=== PATIENT | female | born 1930 | race Caucasian/White ===

== ENCOUNTER 2017-01-24 10:37 | Inpatient (IN) | payer OTHER ==
[~2017-01-24] VITALS: Ht 165.1 cm; Wt 99.8 kg
[~2017-01-24 10:37] MED LIST: ALBU8.5H3 INH; ALLO100T30 PO; AMIO200T42 PO; AZIT250T89 PO; AZIT500T77 PO; CEFD300C37 PO; CIPR250T2 PO; CIPR500T87 PO; DILT120C11 PO; FURO-93 PO; HYDROCORT PO; HYDROCORTISONE PO; LATA2.5D3 EACHEYE; LEVO125T5 PO; LEVO75TA PO; METO25TA35 PO; METR500T PO; MONT10TA9 PO; OMEP40CA6 PO; POTA10TA31 PO; POTASSIUM PO; SPIR50TA2 PO; WARF10TA6 PO-COUM; WARF1TAB PO; WARF2.5T73 PO; WARF2TAB PO; WARF3TAB PO; WARF3TAB7 PO; [UNRECOGNIZED DRUG - CODE]; [UNRECOGNIZED DRUG - REMARK] PO
[2017-01-24] MEDS ORDERED: ONDANSETRON 2MG/ML, 2ML IVPush ONE (11:30)
[2017-01-24 11:51] LABS: BLOOD UREA NITROGEN 33 mg/dL (7-18)
[2017-01-24] MEDS ORDERED: HYDROmorphone 1 MG/ML, 1ML ONE ×2 (11:52→14:31)
[2017-01-24] MEDS ORDERED: ONDANSETRON 2MG/ML, 2ML ONE (11:52)
[2017-01-24] MEDS ORDERED: HYDR5TAB2 PO (12:13)
[2017-01-24] MEDS ORDERED: POTA10CA PO (12:13)
[2017-01-24] MEDS ORDERED: FURO20TA3 PO (12:13)
[2017-01-24] MEDS ORDERED: SPIR50TA2 PO (12:13)
[2017-01-24] MEDS ORDERED: AMIO200T7 PO (12:13)
[2017-01-24] MEDS ORDERED: MECLIZINE CHEWABLE 25 MG TAB ONE (12:53)
[2017-01-24] MEDS ORDERED: MECLIZINE CHEWABLE 25 MG TAB PO ONE (13:00)
[2017-01-24] MEDS ORDERED: PROMETHAZINE 25 MG/ML, 1ML IM ONE (14:30)
[2017-01-24] MEDS ORDERED: PROMETHAZINE 25 MG/ML, 1ML ONE (14:31)
[2017-01-24] MEDS: HYDROmorphone 1 MG/ML, 1ML IVPush PRN ×2 (14:36→15:16)
[2017-01-24] MEDS ORDERED: SODIUM CHLORIDE FLUSH 10ML SYR IVF ONE (15:00)
[2017-01-24] MEDS ORDERED: SODIUM CHLORIDE 0.9% 1,000ML IVBOLUS ONE (15:00)
[2017-01-24 15:05] LABS: IS PT STATUS REG ER OR PRE ER? YES
[2017-01-24] MEDS ORDERED: POLYETHYLENE GLYCOL 17 GM PACKET PO PRN (15:30)
[2017-01-24] MEDS ORDERED: morphine SULFATE 10 MG/ML, 1ML IVPush PRN (15:30)
[2017-01-24] MEDS ORDERED: DOCUSATE 100 MG CAPSULE PO PRN (15:30)
[2017-01-24] MEDS ORDERED: NS + 20MEQ KCL 1,000 ML IV SCH (15:30)
[2017-01-24] MEDS ORDERED: ACETAMINOPHEN 325 MG TABLET PO PRN (15:30)
[2017-01-24] MEDS ORDERED: ONDANSETRON 2MG/ML, 2ML IVPush PRN (15:30)
[2017-01-24 16:22] VITALS: BP 116/44
[2017-01-24] MEDS ORDERED: ALBUTEROL SULFATE 2.5 MG/3 ML NPPB PRN (16:30)
[2017-01-24] MEDS: WARFARIN 3 MG TABLET PO-COUM SCH (18:09)
[2017-01-24 18:33] VITALS: BP 125/73
[2017-01-24] MEDS: LATANOPROST OPHTH 0.005%, 2.5ML EACHEYE SCH (22:13)
[2017-01-25 00:03] LABS: IS PT STATUS REG ER OR PRE ER? NO
[2017-01-25 01:32] VITALS: BP 129/64
[2017-01-25] MEDS: LEVOTHYROXINE 50 MCG TABLET PO SCH (05:08)
[2017-01-25 06:08] LABS: BLOOD UREA NITROGEN 30 mg/dL (7-18)
[2017-01-25 06:10] LABS: IS PT STATUS REG ER OR PRE ER? NO
[2017-01-25 06:25] LABS: PATH.CAST-FLAG NOT PRESENT; SPERM-FLAG NOT PRESENT; SRC-FLAG NOT PRESENT; XTAL-FLAG NOT PRESENT; YLC-FLAG NOT PRESENT
[2017-01-25 08:00] VITALS: BP 102/59
[2017-01-25] MEDS: SENNA/DOCUSATE TABLET PO SCH (09:00)
[2017-01-25] MEDS ORDERED: CEFTRIAXONE 1,000 MG in SODIUM CHLORIDE 0.9% 50 ML IV SCH (09:30)
[2017-01-25] MEDS: HYDROCORTISONE 5 MG TABLET PO SCH (09:48)
[2017-01-25] MEDS: MONTELUKAST 10 MG TABLET PO SCH (09:48)
[2017-01-25] MEDS: POTASSIUM CHLORIDE 10 MEQ TABLET.ER PO SCH (09:49)
[2017-01-25] MEDS: SPIRONOLACTONE 50 MG TABLET PO SCH (09:49)
[2017-01-25] MEDS: AMIODARONE 200 MG TABLET PO SCH (09:49)
[2017-01-25] MEDS: CEFTRIAXONE 1,000 MG in SODIUM CHLORIDE 0.9% 100 ML IV SCH (11:08)
[2017-01-25 13:41] VITALS: BP 129/70
[2017-01-25] MEDS: WARFARIN 3 MG TABLET PO-COUM SCH (18:33)
[2017-01-25 19:29] VITALS: BP 119/68
[2017-01-25] MEDS: LATANOPROST OPHTH 0.005%, 2.5ML EACHEYE SCH (20:59)
[2017-01-25] MEDS: HYDROcodone/APAP 5/325 TABLET PO PRN (20:59)
[2017-01-26 03:38] VITALS: BP 114/68
[2017-01-26] MEDS: LEVOTHYROXINE 50 MCG TABLET PO SCH (05:00)
[2017-01-26] MEDS: HYDROcodone/APAP 5/325 TABLET PO PRN ×4 (05:00→20:22)
[2017-01-26 06:08] LABS: BLOOD UREA NITROGEN 22 mg/dL (7-18)
[2017-01-26 07:23] VITALS: BP 111/62
[2017-01-26] MEDS: SPIRONOLACTONE 50 MG TABLET PO SCH (08:05)
[2017-01-26] MEDS: MONTELUKAST 10 MG TABLET PO SCH (08:05)
[2017-01-26] MEDS: SENNA/DOCUSATE TABLET PO SCH (08:05)
[2017-01-26] MEDS: POTASSIUM CHLORIDE 10 MEQ TABLET.ER PO SCH (08:05)
[2017-01-26] MEDS: HYDROCORTISONE 5 MG TABLET PO SCH (08:05)
[2017-01-26] MEDS: AMIODARONE 200 MG TABLET PO SCH (08:05)
[2017-01-26] MEDS: CEFTRIAXONE 1,000 MG in SODIUM CHLORIDE 0.9% 100 ML IV SCH (10:25)
[2017-01-26 14:24] VITALS: BP 113/61
[2017-01-26] MEDS: WARFARIN 3 MG TABLET PO-COUM SCH (18:10)
[2017-01-26] MEDS: LATANOPROST OPHTH 0.005%, 2.5ML EACHEYE SCH (20:23)
[2017-01-26 21:40] VITALS: BP 108/57
[2017-01-27 02:00] VITALS: BP 114/62
[2017-01-27 05:37] LABS: BLOOD UREA NITROGEN 17 mg/dL (7-18)
[2017-01-27] MEDS: LEVOTHYROXINE 50 MCG TABLET PO SCH (05:42)
[2017-01-27 08:00] VITALS: BP 108/53
[2017-01-27] MEDS: HYDROCORTISONE 5 MG TABLET PO SCH (09:15)
[2017-01-27] MEDS: SENNA/DOCUSATE TABLET PO SCH (09:15)
[2017-01-27] MEDS: MONTELUKAST 10 MG TABLET PO SCH (09:15)
[2017-01-27] MEDS: SPIRONOLACTONE 50 MG TABLET PO SCH (09:16)
[2017-01-27] MEDS: AMIODARONE 200 MG TABLET PO SCH (09:16)
[2017-01-27] MEDS: POTASSIUM CHLORIDE 10 MEQ TABLET.ER PO SCH (09:16)
[2017-01-27] MEDS: HYDROcodone/APAP 5/325 TABLET PO PRN ×2 (10:04→23:38)
[2017-01-27] MEDS ORDERED: CEFTRIAXONE PMX 1GM/50ML 50 ML IV SCH (11:00)
[2017-01-27 14:00] VITALS: BP 120/64
[2017-01-27 19:41] VITALS: BP 114/62
[2017-01-27] MEDS: LATANOPROST OPHTH 0.005%, 2.5ML EACHEYE SCH (20:47)
[2017-01-27] MEDS: SULFAMETH./TRIMETHOPRIM DS 800MG/160MG TABLET PO SCH (20:47)
[2017-01-28 01:43] VITALS: BP 105/60
[2017-01-28 06:19] LABS: BLOOD UREA NITROGEN 15 mg/dL (7-18)
[2017-01-28] MEDS: LEVOTHYROXINE 50 MCG TABLET PO SCH (06:23)
[2017-01-28 07:31] VITALS: BP 101/57
[2017-01-28] MEDS: SENNA/DOCUSATE TABLET PO SCH (09:08)
[2017-01-28] MEDS: SULFAMETH./TRIMETHOPRIM DS 800MG/160MG TABLET PO SCH ×2 (09:09→20:51)
[2017-01-28] MEDS: POTASSIUM CHLORIDE 10 MEQ TABLET.ER PO SCH (09:09)
[2017-01-28] MEDS: AMIODARONE 200 MG TABLET PO SCH (09:09)
[2017-01-28] MEDS: HYDROCORTISONE 5 MG TABLET PO SCH (09:09)
[2017-01-28] MEDS: MONTELUKAST 10 MG TABLET PO SCH (09:09)
[2017-01-28] MEDS ORDERED: PHYTONADIONE 10 MG/ML, 1ML SQ ONE (09:30)
[2017-01-28] MEDS: NYSTATIN 500,000 UNITS/5 ML UDC PO SCH ×3 (10:39→20:51)
[2017-01-28 13:16] VITALS: BP 103/61
[2017-01-28] MEDS: HYDROcodone/APAP 5/325 TABLET PO PRN ×2 (16:02→18:49)
[2017-01-28 19:40] VITALS: BP 120/61
[2017-01-28] MEDS: LATANOPROST OPHTH 0.005%, 2.5ML EACHEYE SCH (20:51)
[2017-01-29 02:55] VITALS: BP 112/60
[2017-01-29] MEDS: NYSTATIN 500,000 UNITS/5 ML UDC PO SCH ×4 (06:04→21:18)
[2017-01-29] MEDS: LEVOTHYROXINE 50 MCG TABLET PO SCH (06:04)
[2017-01-29 06:20] VITALS: BP 114/58
[2017-01-29 06:49] LABS: BLOOD UREA NITROGEN 12 mg/dL (7-18)
[2017-01-29] MEDS ORDERED: PHYTONADIONE 10 MG/ML, 1ML IM ONE (07:30)
[2017-01-29] MEDS: HYDROCORTISONE 5 MG TABLET PO SCH (08:39)
[2017-01-29] MEDS: AMIODARONE 200 MG TABLET PO SCH (08:39)
[2017-01-29] MEDS: POTASSIUM CHLORIDE 10 MEQ TABLET.ER PO SCH (08:39)
[2017-01-29] MEDS: SENNA/DOCUSATE TABLET PO SCH (08:39)
[2017-01-29] MEDS: SULFAMETH./TRIMETHOPRIM DS 800MG/160MG TABLET PO SCH ×2 (08:39→21:17)
[2017-01-29] MEDS: MONTELUKAST 10 MG TABLET PO SCH (08:39)
[2017-01-29] MEDS ORDERED: SODIUM CHLORIDE 0.9% 1,000 ML IV SCH (09:30)
[2017-01-29] MEDS ORDERED: FLUCONAZOLE 200 MG/100 ML 100 ML IV SCH (10:00)
[2017-01-29] MEDS ORDERED: FLUCONAZOLE 200 MG/100 ML 100 ML IV ONE (12:00)
[2017-01-29 12:05] VITALS: BP 118/59
[2017-01-29] MEDS: HYDROcodone/APAP 5/325 TABLET PO PRN (14:44)
[2017-01-29] MEDS ORDERED: POLYETHYLENE GLYCOL 17 GM PACKET PO PRN (15:30)
[2017-01-29] MEDS ORDERED: ONDANSETRON 2MG/ML, 2ML IVPush PRN (17:40)
[2017-01-29] MEDS ORDERED: ONDANSETRON ODT 4 MG PO PRN (17:40)
[2017-01-29 19:44] VITALS: BP 119/71
[2017-01-29] MEDS: LATANOPROST OPHTH 0.005%, 2.5ML EACHEYE SCH (21:18)
[2017-01-30] MEDS: SODIUM CHLORIDE 0.9% 1,000 ML IV SCH ×2 (00:06→23:00)
[2017-01-30 01:10] VITALS: BP 124/54
[2017-01-30] MEDS: NYSTATIN 500,000 UNITS/5 ML UDC PO SCH ×5 (06:00→20:05)
[2017-01-30] MEDS: LEVOTHYROXINE 50 MCG TABLET PO SCH (06:13)
[2017-01-30 06:48] LABS: BLOOD UREA NITROGEN 10 mg/dL (7-18)
[2017-01-30] MEDS: POTASSIUM CHLORIDE 10 MEQ TABLET.ER PO SCH (08:00)
[2017-01-30] MEDS: SENNA/DOCUSATE TABLET PO SCH (08:00)
[2017-01-30] MEDS: AMIODARONE 200 MG TABLET PO SCH (08:00)
[2017-01-30] MEDS: HYDROCORTISONE 5 MG TABLET PO SCH (08:00)
[2017-01-30] MEDS: MONTELUKAST 10 MG TABLET PO SCH (08:00)
[2017-01-30] MEDS: SULFAMETH./TRIMETHOPRIM DS 800MG/160MG TABLET PO SCH ×2 (08:00→20:05)
[2017-01-30] MEDS ORDERED: FLUCONAZOLE 100 MG TABLET PO SCH (09:30)
[2017-01-30] MEDS: HYDROcodone/APAP 5/325 TABLET PO PRN (10:55)
[2017-01-31] MEDS: NYSTATIN 500,000 UNITS/5 ML UDC PO SCH ×6 (06:05→18:25)
[2017-01-31] MEDS: LEVOTHYROXINE 50 MCG TABLET PO SCH (06:05)
[2017-01-31 07:50] VITALS: BP 108/60
[2017-01-31] MEDS: SULFAMETH./TRIMETHOPRIM DS 800MG/160MG TABLET PO SCH (09:00)
[2017-01-31] MEDS: MONTELUKAST 10 MG TABLET PO SCH (09:30)
[2017-01-31] MEDS: SENNA/DOCUSATE TABLET PO SCH (09:30)
[2017-01-31] MEDS: AMIODARONE 200 MG TABLET PO SCH (09:30)
[2017-01-31] MEDS: POTASSIUM CHLORIDE 10 MEQ TABLET.ER PO SCH (09:30)
[2017-01-31] MEDS: HYDROCORTISONE 5 MG TABLET PO SCH (09:30)
[2017-01-31] MEDS: HYDROcodone/APAP 5/325 TABLET PO PRN (12:00)
[2017-01-31 12:55] VITALS: BP 111/58
[2017-01-31] MEDS ORDERED: DOCU100C8 PO (16:01)
[2017-01-31] MEDS ORDERED: ACET325T26 PO (16:01)
[2017-01-31] MEDS ORDERED: HYDR-3138 PO (16:04)
[2017-01-31] MEDS ORDERED: SENN1TAB7 PO (16:06)
[2017-01-31] MEDS ORDERED: PROVENTIL (16:10)
[2017-01-31] MEDS ORDERED: SULF1TAB3 PO (16:13)
[2017-01-31] MEDS ORDERED: NYST1000 PO (16:14)
[2017-01-31] MEDS ORDERED: FLUC100T4 PO (16:17)
[2017-01-31] MEDS ORDERED: POLY17PO5 PO (16:23)
[2017-01-31] MEDS ORDERED: ONDA4TAB13 SL (16:24)
[2017-01-31 18:10] LABS: DIFF TOTAL CELLS COUNTED 100 CELL DIFF
[2017-01-31 18:21] LABS: ANISOCYTOSIS 1+; HYPOCHROMIA 1+; POLYCHROMASIA 2+; VERIFY COUNTS? YES
[2017-02-01 15:55] LABS: BLOOD UREA NITROGEN 9 mg/dL (7-18)
== END 2017-01-31 18:30 | DRG 291 ==
LOC: ED 13:43 → EDIP 14:36 → 4WST 16:18 → EDIP 01-31 18:09
PROVIDERS: ATTEND Family Medicine
DX: I13.0 Hypertensive heart and chronic kidney disease with heart failure and stage 1 through stage 4 chronic kidney disease, or unspecified chronic kidney disease (principal); N17.0 Acute kidney failure with tubular necrosis; N39.0 Urinary tract infection, site not specified; D68.69 Other thrombophilia; E87.1 Hypo-osmolality and hyponatremia; B37.0 Candidal stomatitis; B37.89 Other sites of candidiasis; I50.32 Chronic diastolic (congestive) heart failure; D49.7 Neoplasm of unspecified behavior of endocrine glands and other parts of nervous system; B96.4 Proteus (mirabilis) (morganii) as the cause of diseases classified elsewhere; E03.9 Hypothyroidism, unspecified; E86.0 Dehydration; G89.11 Acute pain due to trauma; I25.10 Atherosclerotic heart disease of native coronary artery without angina pectoris; I48.0 Paroxysmal atrial fibrillation; M10.9 Gout, unspecified; N18.2 Chronic kidney disease, stage 2 (mild); W01.0XXA Fall on same level from slipping, tripping and stumbling without subsequent striking against object, initial encounter; S09.90XA Unspecified injury of head, initial encounter; S50.319A Abrasion of unspecified elbow, initial encounter; Z79.01 Long term (current) use of anticoagulants; Z82.49 Family history of ischemic heart disease and other diseases of the circulatory system; Z86.711 Personal history of pulmonary embolism; Y93.89 Activity, other specified; Y92.098 Other place in other non-institutional residence as the place of occurrence of the external cause; Y99.8 Other external cause status; Z90.49 Acquired absence of other specified parts of digestive tract
CPT/HCPCS: 36415; 70450; 74020; 80048; 81001; 82040; 84484; 85025; 85610; 87077; 87086; 87147; 87186; 93005; 96372; 96374; 96376; J0696; J1170; J2405; J2550; J3430; J3480; J1450; J7030

== ENCOUNTER 2017-02-21 16:42 | Inpatient (IN) | payer OTHER ==
[~2017-02-21] VITALS: Ht 165.1 cm; Wt 102.0 kg
[~2017-02-21 16:42] MED LIST changes: +ACET325T26 PO; +AMIO200T7 PO; +DOCU100C8 PO; +FLUC100T4 PO; +FURO20TA3 PO; +HYDR-3138 PO; +HYDR5TAB2 PO; +NYST1000 PO; +ONDA4TAB13 SL; +POLY17PO5 PO; +POTA10CA PO; +PROVENTIL; +SENN1TAB7 PO; +SULF1TAB3 PO
[2017-02-21] MEDS ORDERED: SODIUM CHLORIDE FLUSH 10ML SYR IVF ONE (18:00)
[2017-02-21] MEDS ORDERED: ASPIRIN 325 MG TABLET PO ONE (18:00)
[2017-02-21] MEDS ORDERED: ASPIRIN 325 MG TABLET ONE (18:00)
[2017-02-21 18:03] LABS: ASPARTATE AMINO TRANSFERASE 79 U/L (15-37); BLOOD UREA NITROGEN 13 mg/dL (7-18)
[2017-02-21 18:08] LABS: IS PT STATUS REG ER OR PRE ER? YES
[2017-02-21] MEDS ORDERED: FURO20TA3 PO (20:32)
[2017-02-21] MEDS ORDERED: OMEP40CA6 PO (20:33)
[2017-02-21] MEDS ORDERED: SPIR50TA2 PO (20:34)
[2017-02-21] MEDS ORDERED: SODIUM CHLORIDE 0.9% 1,000 ML IV SCH (20:51)
[2017-02-21] MEDS ORDERED: ONDANSETRON ODT 4 MG PO PRN (21:00)
[2017-02-21] MEDS ORDERED: TEMAZEPAM 15 MG CAPSULE PO PRN (21:00)
[2017-02-21] MEDS ORDERED: DOCUSATE 100 MG CAPSULE PO PRN (21:00)
[2017-02-21] MEDS ORDERED: LABETALOL 5MG/ML, 20ML IVPush PRN (21:00)
[2017-02-21 23:07] VITALS: BP 99/49
[2017-02-22] VITALS (7 sets, daily range): BP systolic 98–133; BP diastolic 61–82
[2017-02-22 00:39] LABS: IS PT STATUS REG ER OR PRE ER? NO
[2017-02-22 05:35] LABS: BLOOD UREA NITROGEN 14 mg/dL (7-18)
[2017-02-22 05:42] LABS: IS PT STATUS REG ER OR PRE ER? NO
[2017-02-22] MEDS: LEVOTHYROXINE 50 MCG TABLET PO SCH (05:42)
[2017-02-22] MEDS ORDERED: HYDROCORTISONE 5 MG TABLET PO SCH (09:00)
[2017-02-22] MEDS: FUROSEMIDE 20 MG TABLET PO SCH (09:00)
[2017-02-22] MEDS: TEMPLATE NON-FORMULARY MED. (Albuterol Sulfate (Proair Hfa) 1 PUFF) INH SCH (09:00)
[2017-02-22] MEDS ORDERED: AMIODARONE 200 MG TABLET PO SCH (09:00)
[2017-02-22] MEDS: SPIRONOLACTONE 50 MG TABLET PO SCH (09:00)
[2017-02-22] MEDS: OMEPRAZOLE 20 MG CAPSULE.DR PO SCH (09:16)
[2017-02-22] MEDS: POTASSIUM CHLORIDE 10 MEQ TABLET.ER PO SCH (09:16)
[2017-02-22] MEDS: MONTELUKAST 10 MG TABLET PO SCH (09:17)
[2017-02-22] MEDS: SODIUM CHLORIDE 0.9% 1,000 ML IV SCH ×2 (09:20→22:10)
[2017-02-22] MEDS: CEFTRIAXONE PMX 1GM/50ML 50 ML IV SCH (13:01)
[2017-02-22] MEDS ORDERED: HYDROcodone/APAP 5/325 TABLET ONE (14:05)
[2017-02-22] MEDS: HYDROcodone/APAP 5/325 TABLET PO PRN ×2 (14:07→21:11)
[2017-02-22] MEDS ORDERED: WARFARIN 3 MG TABLET PO-COUM SCH (18:00)
[2017-02-22] MEDS ORDERED: WARFARIN 3 MG TABLET PO-COUM ONE (18:00)
[2017-02-22] MEDS: HYDROCORTISONE 20 MG TABLET PO SCH (21:11)
[2017-02-23 01:58] VITALS: BP 129/69
[2017-02-23] MEDS: LEVOTHYROXINE 50 MCG TABLET PO SCH (04:47)
[2017-02-23 06:01] LABS: ASPARTATE AMINO TRANSFERASE 105 U/L (15-37); BLOOD UREA NITROGEN 17 mg/dL (7-18)
[2017-02-23 08:01] VITALS: BP 119/71
[2017-02-23] MEDS: HYDROCORTISONE 20 MG TABLET PO SCH (08:22)
[2017-02-23] MEDS: SPIRONOLACTONE 50 MG TABLET PO SCH (08:22)
[2017-02-23] MEDS: TEMPLATE NON-FORMULARY MED. (Albuterol Sulfate (Proair Hfa) 1 PUFF) INH SCH (08:22)
[2017-02-23] MEDS: MONTELUKAST 10 MG TABLET PO SCH (08:22)
[2017-02-23] MEDS: OMEPRAZOLE 20 MG CAPSULE.DR PO SCH (08:22)
[2017-02-23] MEDS: FUROSEMIDE 20 MG TABLET PO SCH (08:22)
[2017-02-23] MEDS: POTASSIUM CHLORIDE 10 MEQ TABLET.ER PO SCH (08:22)
[2017-02-23] MEDS ORDERED: AMIODARONE 200 MG TABLET PO ONE (08:30)
[2017-02-23] MEDS: AMIODARONE 200 MG TABLET PO SCH (09:00)
[2017-02-23] MEDS: SODIUM CHLORIDE 0.9% 1,000 ML IV SCH (11:31)
[2017-02-23] MEDS: CEFTRIAXONE PMX 1GM/50ML 50 ML IV SCH (11:31)
[2017-02-23 13:51] VITALS: BP 127/73
[2017-02-23] MEDS ORDERED: FUROSEMIDE 40 MG/4 ML IV ONE (14:30)
[2017-02-23] MEDS ORDERED: HYDROCORTISONE 10 MG TABLET PO SCH (14:30)
[2017-02-23] MEDS ORDERED: HYDROCORTISONE 5 MG TABLET PO SCH ×2 (14:30→21:00)
[2017-02-23] MEDS ORDERED: POTASSIUM CHLORIDE 20 MEQ TAB.ER.PRT PO ONE (14:30)
[2017-02-23] MEDS: HYDROcodone/APAP 5/325 TABLET PO PRN (17:29)
[2017-02-23] MEDS ORDERED: WARFARIN 3 MG TABLET PO-COUM SCH (18:00)
[2017-02-23 18:50] VITALS: BP 94/59
[2017-02-24 00:54] VITALS: BP 94/58
[2017-02-24] MEDS: SODIUM CHLORIDE 0.9% 1,000 ML IV SCH ×2 (01:09→09:30)
[2017-02-24 06:00] LABS: ASPARTATE AMINO TRANSFERASE 47 U/L (15-37); BLOOD UREA NITROGEN 18 mg/dL (7-18)
[2017-02-24] MEDS ORDERED: LEVOTHYROXINE 25 MCG TABLET PO SCH (06:00)
[2017-02-24] MEDS: LEVOTHYROXINE 50 MCG TABLET PO SCH (06:23)
[2017-02-24 06:55] VITALS: BP 129/78
[2017-02-24 08:00] VITALS: BP_SYST 111; BP_SYST 115; BP_SYST 128; BP_DIAS 68; BP_DIAS 76; BP_DIAS 78
[2017-02-24] MEDS: TEMPLATE NON-FORMULARY MED. (Albuterol Sulfate (Proair Hfa) 1 PUFF) INH SCH (08:38)
[2017-02-24] MEDS: MONTELUKAST 10 MG TABLET PO SCH (08:38)
[2017-02-24] MEDS: OMEPRAZOLE 20 MG CAPSULE.DR PO SCH (08:38)
[2017-02-24] MEDS: SPIRONOLACTONE 50 MG TABLET PO SCH (08:39)
[2017-02-24] MEDS: FUROSEMIDE 20 MG TABLET PO SCH (08:39)
[2017-02-24] MEDS: POTASSIUM CHLORIDE 10 MEQ TABLET.ER PO SCH (08:39)
[2017-02-24] MEDS: AMIODARONE 200 MG TABLET PO SCH (08:39)
[2017-02-24] MEDS: CEFTRIAXONE PMX 1GM/50ML 50 ML IV SCH (11:41)
[2017-02-24 13:53] VITALS: BP 134/77
[2017-02-24] MEDS ORDERED: SODIUM BICARBONATE 650 MG TABLET PO PRN ×3 (16:30→16:31)
[2017-02-24] MEDS ORDERED: WARFARIN 2.5 MG TABLET PO-COUM SCH (18:00)
[2017-02-24 18:44] VITALS: BP 92/61
[2017-02-24] MEDS: HYDROcodone/APAP 5/325 TABLET PO PRN (19:38)
[2017-02-24] MEDS: morphine SULFATE 10 MG/ML, 1ML IVPush PRN (23:57)
[2017-02-25 02:30] VITALS: BP 112/79
[2017-02-25] MEDS: LEVOTHYROXINE 50 MCG TABLET PO SCH (05:43)
[2017-02-25] MEDS: morphine SULFATE 10 MG/ML, 1ML IVPush PRN ×5 (05:43→18:45)
[2017-02-25 06:36] VITALS: BP 109/82
[2017-02-25 06:42] LABS: BLOOD UREA NITROGEN 13 mg/dL (7-18)
[2017-02-25 08:25] LABS: ASPARTATE AMINO TRANSFERASE 207 U/L (15-37)
[2017-02-25] MEDS: TEMPLATE NON-FORMULARY MED. (Albuterol Sulfate (Proair Hfa) 1 PUFF) INH SCH (09:00)
[2017-02-25] MEDS: AMIODARONE 200 MG TABLET PO SCH (11:33)
[2017-02-25] MEDS: SPIRONOLACTONE 50 MG TABLET PO SCH (11:35)
[2017-02-25] MEDS: MONTELUKAST 10 MG TABLET PO SCH (11:35)
[2017-02-25] MEDS: FUROSEMIDE 20 MG TABLET PO SCH (11:35)
[2017-02-25] MEDS: POTASSIUM CHLORIDE 10 MEQ TABLET.ER PO SCH (11:37)
[2017-02-25] MEDS: OMEPRAZOLE 20 MG CAPSULE.DR PO SCH (11:37)
[2017-02-25] MEDS: CEFTRIAXONE PMX 1GM/50ML 50 ML IV SCH (11:37)
[2017-02-25 13:50] VITALS: BP 116/79
[2017-02-25 15:40] VITALS: BP 110/68
[2017-02-25] MEDS ORDERED: CEFTRIAXONE 2 GM in SODIUM CHLORIDE 0.9% 50 ML IV SCH (16:00)
[2017-02-25] MEDS: METRONIDAZOLE PMX 500MG/100ML 100 ML IV SCH ×2 (16:33→23:36)
[2017-02-25] MEDS ORDERED: FILTER 0.22 MICRON IV ONE (17:00)
[2017-02-25] MEDS ORDERED: AMIODARONE 300 MG in DEXTROSE 5% 100 ML IV ONE (17:00)
[2017-02-25] MEDS ORDERED: ADENOSINE 6 MG/2 ML ONE ×2 (17:05)
[2017-02-25] MEDS ORDERED: DIGOXIN 0.25 MG/ML, 2ML IVPush ONE ×2 (17:30→23:30)
[2017-02-25] MEDS ORDERED: AMIODARONE 900 MG in DEXTROSE 5% 482 ML IV PRN (17:30)
[2017-02-25] MEDS ORDERED: ADENOSINE 6 MG/2 ML IVPush ONE ×2 (17:30)
[2017-02-25] MEDS ORDERED: DIGOXIN 0.25 MG/ML, 2ML ONE (17:34)
[2017-02-25 17:47] LABS: BLOOD UREA NITROGEN 11 mg/dL (7-18)
[2017-02-25] MEDS ORDERED: FUROSEMIDE 40 MG/4 ML IV ONE (18:00)
[2017-02-25] MEDS ORDERED: WARFARIN 2.5 MG TABLET PO-COUM SCH (18:00)
[2017-02-25] MEDS ORDERED: MAGNESIUM SULFATE PMX 4GM/100M 100 ML IV ONE (18:00)
[2017-02-25] MEDS ORDERED: ALBUTEROL SULFATE 2.5 MG/3 ML NPPB PRN (18:08)
[2017-02-25] MEDS: FILTER 0.22 MICRON IV SCH (18:27)
[2017-02-25 20:00] VITALS: BP 101/72
[2017-02-25 23:32] VITALS: BP 102/67
[2017-02-26 02:08] VITALS: BP 106/64
[2017-02-26 05:06] LABS: ASPARTATE AMINO TRANSFERASE 295 U/L (15-37); BLOOD UREA NITROGEN 13 mg/dL (7-18)
[2017-02-26] MEDS ORDERED: DIGOXIN 0.25 MG/ML, 2ML IVPush ONE (05:30)
[2017-02-26] MEDS ORDERED: POTASSIUM PHOSPHATE 44 MEQ in SODIUM CHLORIDE 0.9% 500 ML IV ONE (07:30)
[2017-02-26] MEDS: LEVOTHYROXINE 50 MCG TABLET PO SCH (08:00)
[2017-02-26 08:21] VITALS: BP 105/71
[2017-02-26] MEDS: OMEPRAZOLE 20 MG CAPSULE.DR PO SCH (09:00)
[2017-02-26] MEDS: FUROSEMIDE 20 MG TABLET PO SCH (09:00)
[2017-02-26] MEDS: SPIRONOLACTONE 50 MG TABLET PO SCH (09:00)
[2017-02-26] MEDS: MONTELUKAST 10 MG TABLET PO SCH (09:00)
[2017-02-26] MEDS: POTASSIUM CHLORIDE 10 MEQ TABLET.ER PO SCH (09:00)
[2017-02-26] MEDS: morphine SULFATE 10 MG/ML, 1ML IVPush PRN ×3 (09:49→21:35)
[2017-02-26] MEDS: ONDANSETRON 2MG/ML, 2ML IVPush PRN ×2 (10:19→21:08)
[2017-02-26] MEDS: METRONIDAZOLE PMX 500MG/100ML 100 ML IV SCH ×2 (10:20→20:46)
[2017-02-26 13:22] VITALS: BP 109/74
[2017-02-26] MEDS: CEFTRIAXONE PMX 2GM/50ML 50 ML IVPB SCH (14:52)
[2017-02-26] MEDS: AMIODARONE 200 MG TABLET PO SCH ×2 (16:43→20:46)
[2017-02-26] MEDS ORDERED: WARFARIN 2 MG TABLET PO-COUM SCH (18:00)
[2017-02-26 20:43] VITALS: BP 119/73
[2017-02-27 02:00] VITALS: BP 119/78
[2017-02-27] MEDS: METRONIDAZOLE PMX 500MG/100ML 100 ML IV SCH ×3 (03:35→20:00)
[2017-02-27 05:46] LABS: ASPARTATE AMINO TRANSFERASE 188 U/L (15-37); BLOOD UREA NITROGEN 14 mg/dL (7-18)
[2017-02-27] MEDS: morphine SULFATE 10 MG/ML, 1ML IVPush PRN (05:56)
[2017-02-27 06:45] VITALS: BP 103/59
[2017-02-27] MEDS: MONTELUKAST 10 MG TABLET PO SCH (08:23)
[2017-02-27] MEDS: POTASSIUM CHLORIDE 10 MEQ TABLET.ER PO SCH (08:28)
[2017-02-27] MEDS: ONDANSETRON 2MG/ML, 2ML IVPush PRN (08:28)
[2017-02-27] MEDS: AMIODARONE 200 MG TABLET PO SCH ×2 (08:28→23:38)
[2017-02-27] MEDS: OMEPRAZOLE 20 MG CAPSULE.DR PO SCH (08:28)
[2017-02-27] MEDS: LEVOTHYROXINE 50 MCG TABLET PO SCH (08:28)
[2017-02-27] MEDS ORDERED: REGADENOSON 0.4 MG/5 ML SYRINGE ONE (11:20)
[2017-02-27] MEDS: CEFTRIAXONE PMX 2GM/50ML 50 ML IVPB SCH (12:25)
[2017-02-27 12:48] VITALS: BP 101/64
[2017-02-27] MEDS: PHYTONADIONE 10 MG/ML, 1ML SQ SCH (16:29)
[2017-02-27 20:30] VITALS: BP 98/50
[2017-02-27] MEDS ORDERED: ERTAPENEM 1 GM in SODIUM CHLORIDE 0.9% 50 ML IV SCH (21:30)
[2017-02-27] MEDS: MEROPENEM 500 MG in SODIUM CHLORIDE 0.9% 100 ML IV SCH (23:40)
[2017-02-28] MEDS: PHYTONADIONE 10 MG/ML, 1ML SQ SCH ×3 (00:01→16:00)
[2017-02-28 02:07] VITALS: BP 101/63
[2017-02-28 06:04] LABS: DIFF TOTAL CELLS COUNTED 100 CELL DIFF
[2017-02-28 06:06] LABS: VERIFY COUNTS? YES
[2017-02-28 06:07] LABS: ANISOCYTOSIS 1+; POLYCHROMASIA 1+
[2017-02-28 06:15] LABS: BLOOD UREA NITROGEN 17 mg/dL (7-18)
[2017-02-28 06:16] LABS: ASPARTATE AMINO TRANSFERASE 121 U/L (15-37)
[2017-02-28 08:26] VITALS: BP 103/50
[2017-02-28] MEDS: LEVOTHYROXINE 50 MCG TABLET PO SCH (09:00)
[2017-02-28] MEDS: MONTELUKAST 10 MG TABLET PO SCH (09:00)
[2017-02-28] MEDS: OMEPRAZOLE 20 MG CAPSULE.DR PO SCH (09:00)
[2017-02-28] MEDS: AMIODARONE 200 MG TABLET PO SCH ×2 (09:00→21:00)
[2017-02-28] MEDS: POTASSIUM CHLORIDE 10 MEQ TABLET.ER PO SCH (09:00)
[2017-02-28] MEDS ORDERED: ANTI INHIBITOR COAGULANT COMP IVPush ONE (09:30)
[2017-02-28 10:38] VITALS: BP 94/60
[2017-02-28 11:16] VITALS: BP 114/66
[2017-02-28] MEDS: MEROPENEM 500 MG in SODIUM CHLORIDE 0.9% 100 ML IV SCH ×2 (11:44→22:24)
[2017-02-28 13:14] VITALS: BP 109/66
[2017-02-28] MEDS ORDERED: FENTANYL PF 100 MCG/2ML ONE (13:46)
[2017-02-28] MEDS ORDERED: MIDAZOLAM 1 MG/ML, 5ML ONE (13:46)
[2017-02-28] MEDS ORDERED: NALOXONE 1 MG/ML, 2ML ONE (13:46)
[2017-02-28] MEDS ORDERED: FLUMAZENIL 0.1 MG/1 ML, 5ML ONE (13:46)
[2017-02-28] MEDS ORDERED: VISIPAQUE 270 MG/ML, 50ML BOTTLE ONE (14:00)
[2017-02-28] MEDS ORDERED: LIDOCAINE 1%, 20ML ONE (14:33)
[2017-02-28] MEDS: morphine SULFATE 10 MG/ML, 1ML IVPush PRN (16:10)
[2017-02-28 19:02] VITALS: BP 95/65
[2017-02-28] MEDS: HYDROmorphone 1 MG/ML, 1ML IV PRN (22:20)
[2017-03-01] VITALS (8 sets, daily range): BP systolic 83–122; BP diastolic 47–68
[2017-03-01 05:51] LABS: DIFF TOTAL CELLS COUNTED 100 CELL DIFF
[2017-03-01 05:56] LABS: ANISOCYTOSIS 1+; POLYCHROMASIA 1+; VERIFY COUNTS? YES
[2017-03-01 05:57] LABS: ASPARTATE AMINO TRANSFERASE 104 U/L (15-37); BLOOD UREA NITROGEN 20 mg/dL (7-18)
[2017-03-01] MEDS: LEVOTHYROXINE 50 MCG TABLET PO SCH (06:00)
[2017-03-01] MEDS: MONTELUKAST 10 MG TABLET PO SCH (08:42)
[2017-03-01] MEDS: OMEPRAZOLE 20 MG CAPSULE.DR PO SCH (08:42)
[2017-03-01] MEDS: AMIODARONE 200 MG TABLET PO SCH (08:42)
[2017-03-01] MEDS ORDERED: PANTOPRAZOLE 40 MG IV IVPush SCH ×2 (09:00→21:00)
[2017-03-01] MEDS ORDERED: LEVOTHYROXINE 100 MCG INJ IVPush SCH (09:00)
[2017-03-01] MEDS ORDERED: HYDROCORTISONE 100 MG INJ. IVPush SCH (09:00)
[2017-03-01] MEDS: MEROPENEM 500 MG in SODIUM CHLORIDE 0.9% 100 ML IV SCH ×2 (09:15→21:29)
[2017-03-01 11:12] LABS: POTASSIUM,URINE RANDOM 65 mmol/L
[2017-03-01] MEDS ORDERED: FLUDROCORTISONE 0.1 MG TABLET PO SCH (11:30)
[2017-03-01] MEDS: AMIODARONE 900 MG in DEXTROSE 5% 482 ML IV PRN (12:09)
[2017-03-01] MEDS: FILTER 0.22 MICRON IV SCH (12:09)
[2017-03-01] MEDS: HYDROmorphone 1 MG/ML, 1ML IV PRN (16:30)
[2017-03-01] MEDS ORDERED: SCOPOLAMINE PATCH, 1.5MG PATCH.TD72 TD SCH (19:30)
[2017-03-02] MEDS: AMIODARONE 900 MG in DEXTROSE 5% 482 ML IV PRN (00:59)
[2017-03-02 01:02] VITALS: BP 87/47
[2017-03-02 01:31] VITALS: BP 86/49
[2017-03-02 02:00] VITALS: BP 93/57
[2017-03-02] MEDS ORDERED: LEVETIRACETAM 500 MG in SODIUM CHLORIDE 0.9% 100 ML IV SCH (03:30)
[2017-03-02] MEDS ORDERED: LORazepam 2 MG/ML, 1ML IVPush ONE (03:30)
[2017-03-02] MEDS ORDERED: PHARMACY MAY ADJ FOR RENAL FX MC PRN (04:00)
[2017-03-02] MEDS ORDERED: SODIUM CHLORIDE 0.9%, 500ML IVBOLUS ONE ×2 (04:00)
[2017-03-02] MEDS ORDERED: HYDROCORTISONE 100 MG INJ. IVPush SCH (04:00)
[2017-03-02] MEDS ORDERED: PIPERACILLIN/TAZO/PMX 2.25GM 50 ML IV SCH (04:00)
[2017-03-02] MEDS ORDERED: NOREPINEPHRINE 1 MG/ML, 4ML ONE (04:40)
[2017-03-02 05:14] LABS: DIFF TOTAL CELLS COUNTED 100 CELL DIFF
[2017-03-02 05:18] LABS: ASPARTATE AMINO TRANSFERASE 109 U/L (15-37); BLOOD UREA NITROGEN 26 mg/dL (7-18)
[2017-03-02 05:26] LABS: ANISOCYTOSIS 1+; POLYCHROMASIA 1+; VERIFY COUNTS? YES
[2017-03-02] MEDS ORDERED: SODIUM CHLORIDE 0.9% 1,000ML IVBOLUS ONE (06:30)
[2017-03-02] MEDS ORDERED: NOREPINEPHRINE 4 MG in SODIUM CHLORIDE 0.9% 246 ML IV PRN (06:30)
[2017-03-02] MEDS ORDERED: FLUDROCORTISONE 0.1 MG TABLET PO SCH (09:00)
[2017-03-02] MEDS: morphine SULFATE 10 MG/ML, 1ML IVPush PRN (09:27)
[2017-03-02] MEDS ORDERED: LORazepam 2 MG/ML, 1ML IV PRN (10:00)
[2017-03-02] MEDS: ATROPINE OPHTH SOLN 1%, 2ML PO PRN ×4 (12:07→22:21)
[2017-03-02] MEDS: LORazepam 2 MG/ML, 1ML IV PRN ×3 (12:07→20:22)
[2017-03-03] MEDS: LORazepam 2 MG/ML, 1ML IV PRN ×2 (00:43→15:25)
[2017-03-03] MEDS: ATROPINE OPHTH SOLN 1%, 2ML PO PRN ×2 (00:44→01:50)
== END 2017-03-03 23:30 | disposition expired | DRG 871 ==
LOC: ED 20:08 → EDIP 20:11 → 5SO 22:00 → CCU 03-02 05:01 → 3NW 03-02 08:56
PROC: 0T9B70Z Drainage of Bladder with Drainage Device, Via Natural or Artificial Opening (ICD-10-PCS; principal; 2017-02-21)
PROC: 0F9430Z Drainage of Gallbladder with Drainage Device, Percutaneous Approach (ICD-10-PCS; 2017-02-28)
PROC: 02HV33Z Insertion of Infusion Device into Superior Vena Cava, Percutaneous Approach (ICD-10-PCS; 2017-02-28)
PROC: B5181ZA Fluoroscopy of Superior Vena Cava using Low Osmolar Contrast, Guidance (ICD-10-PCS; 2017-02-28)
PROC: B548ZZA Ultrasonography of Superior Vena Cava, Guidance (ICD-10-PCS; 2017-02-28)
DX: A41.9 Sepsis, unspecified organism (principal); R65.21 Severe sepsis with septic shock; E43 Unspecified severe protein-calorie malnutrition; N17.0 Acute kidney failure with tubular necrosis; I50.33 Acute on chronic diastolic (congestive) heart failure; G93.41 Metabolic encephalopathy; D68.69 Other thrombophilia; I13.0 Hypertensive heart and chronic kidney disease with heart failure and stage 1 through stage 4 chronic kidney disease, or unspecified chronic kidney disease; E27.40 Unspecified adrenocortical insufficiency; B17.9 Acute viral hepatitis, unspecified; I47.2 Ventricular tachycardia; K80.62 Calculus of gallbladder and bile duct with acute cholecystitis without obstruction; K83.0 Cholangitis; G90.8 Other disorders of autonomic nervous system; L53.9 Erythematous condition, unspecified; I48.0 Paroxysmal atrial fibrillation; N18.3 Chronic kidney disease, stage 3 (moderate); D35.2 Benign neoplasm of pituitary gland; E03.9 Hypothyroidism, unspecified; E66.9 Obesity, unspecified; E83.42 Hypomagnesemia; G40.901 Epilepsy, unspecified, not intractable, with status epilepticus; J45.909 Unspecified asthma, uncomplicated; M10.9 Gout, unspecified; Z51.5 Encounter for palliative care; Z66 Do not resuscitate; Z79.01 Long term (current) use of anticoagulants; Z79.899 Other long term (current) drug therapy; Z82.0 Family history of epilepsy and other diseases of the nervous system; Z82.3 Family history of stroke; Z82.49 Family history of ischemic heart disease and other diseases of the circulatory system; Z86.711 Personal history of pulmonary embolism; Z87.891 Personal history of nicotine dependence; Z90.49 Acquired absence of other specified parts of digestive tract; Z68.37 Body mass index [BMI] 37.0-37.9, adult
CPT/HCPCS: 36415; 36569; 47490; 70450; 71010; 74176; 74181; 75989; 76700; 76937; 76942; 77001; 78452; 80048; 80053; 80162; 81001; 81003; 82247; 82248; 82436; 82533; 83036; 83605; 83690; 83735; 83880; 84100; 84133; 84145; 84300; 84439; 84443; 84484; 84550; 85025; 85379; 85610; 85730; 86704; 86706; 86708; 86803; 87040; 87205; 87340; 93005; 93017; 93306; 93880; 95816; 99156; 99157; C1894; J0153; J0696; J1170; J1940; J1953; J2185; J2250; J2405; J2543; J2785; J3010; J3430; J3490; J7060; J7198; Q9966; A9502; C1729; C1751; C1769; C9113; C9898; J0282; J1160; J1720; J2060; J2270; J2310; J3475; J7030; J7040; J7050